=== PATIENT | female | born 1980 | race Two or more races ===

== ENCOUNTER 2016-07-06 20:58 | Emergency (ER) | payer OTHER ==
[2016-07-06 21:45] VITALS: BP 121/75; PULSE 95; RESP 16; TEMP 98.1; O2SAT 96
--- NOTE | 2016-07-06 21:59 | UCPHY ---
H & P Patient Type: Established Chief Complaint Nursing Narrative: heavy vaginal bleeding with clots for 3 day, frequent soft stools,cramping,low back pain,constant vaginal bleeding for 2 months Time Seen by Provider: 07/06/16 21:49 HPI/ROS: This patient complains of heavy vaginal bleeding for the past 24 hours. She reports 2 months of study bleeding for about 3 or 4 pads a day but then over the past 3 days the severity of the bleeding has gradually increased and now today she reports going through a pad about every hour. She reports mild cramping to moderate cramping in the pelvic region this afternoon that resolved or nearly resolved with ibuprofen 800 mg. She notes no exacerbating or alleviating factors for her symptoms. ROS: Constitutional: Mild fatigue today. Otherwise negative. HEENT: No headache or other complaints pulmonary: No shortness of breath cardiovascular: No lightheadedness. GI: No nausea or vomiting. : No vaginal discharge or other symptoms proceeded the bleeding. She does not think she is . 10 point ROS is otherwise negative. Source: Patient Exam Limitations: No limitations - Personal History LMP (Females 10-55): Now - Medical/Surgical History PMH: Obesity PCOS Hx Asthma: No Hx Chronic Respiratory Disease: No Hx Diabetes: No Hx Cardiac Disease: No Hx Renal Disease: No Hx Cirrhosis: No Hx Alcoholism: No Hx HIV/AIDS: No Hx Splenectomy or Spleen Trauma: No Other PMH: tonsillectomy, anxiety,GERD - Family History Significant Family History: No pertinent family hx - Social History Smoking Status: Never smoked Alcohol Use: Occasionally Drug Use: None - Physical Exam Exam: General Appearance: Pleasant obese female Alert, no distress. Eyes: Pupils equal and round no pallor or injection. ENT, Mouth: Mucous membranes moist. Respiratory: There are no retractions, lungs are clear to auscultation. Cardiovascular: Regular rate and rhythm. Gastrointestinal: Abdomen is soft and nontender, no masses, bowel sounds normal. : No external genitalia lesions. Speculum exam she has moderate blood through the cervical os. The os is closed. The cervix appears healthy. There is no lesions. Neurological: Alert with no focal deficits. Skin: Warm and dry, no rashes. No significant pallor. Psychiatric: Mood and affect are normal DIFFERENTIAL DIAGNOSIS: After history and physical exam differential diagnosis was considered for dysfunctional uterine bleeding, uterine cancer, ovarian cysts , Constitutional: Initial Vital Signs Temperature (C) 36.7 C 07/06/16 21:41 Heart Rate 95 07/06/16 21:41 Respiratory Rate 16 07/06/16 21:41 Blood Pressure 121/75 H 07/06/16 21:41 O2 Sat (%) 96 07/06/16 21:41 O2 Delivery Mode Room Air Allergies/Adverse Reactions: No Known Allergies Allergy (Verified 07/06/16 21:40) Home Medications: Medication Instructions Recorded Norethindrone Acetate [Aygestin 5 mg PO QID #30 tab 07/06/16 5mg (RX)] Vyvanse 07/06/16 Medical Decision Making ED Course/Re-evaluation: Studies: CBC - review-no anemia HCG is negative I spoke with Dr. Balbuena-JOSE on-call to facilitate close follow-up. We will start the patient on Aygestin if it is going to take more than a couple days to be seen in the clinic. Otherwise she will try to hold off on Aygestin if she is able to the be seen within the next 2 days for evaluation 1st by OBGYN. I counseled her regarding this. Discussion: Menometrorrhagia in this patient with out evidence of hemodynamic instability. We ruled out . No other concerning findings - Data Points Laboratory Results: Laboratory Results 07/06/16 22:15 07/06/16 22:15 WBC 10.84 H 10^3/uL (3.80-9.50) RBC 4.86 10^6/uL (4.18-5.33) Hgb 14.4 g/dL (12.6-16.3) Hct 42.6 % (38.0-47.0) MCV 87.7 fL (81.5-99.8) MCH 29.6 pg (27.9-34.1) MCHC 33.8 g/dL (32.4-36.7) RDW 12.3 % (11.5-15.2) Plt Count 314 10^3/uL (150-400) MPV 9.5 fL (8.7-11.7) Neut % (Auto) 56.9 % (39.3-74.2) Lymph % (Auto) 33.8 % (15.0-45.0) [place] % (Auto) 6.8 % (4.5-13.0) Eos % (Auto) 1.4 % (0.6-7.6) Baso % (Auto) 0.6 % (0.3-1.7) Nucleat RBC Rel Count 0.0 % (0.0-0.2) Absolute Neuts (auto) 6.17 10^3/uL (1.70-6.50) Absolute Lymphs (auto) 3.66 H 10^3/uL (1.00-3.00) Absolute Monos (auto) 0.74 10^3/uL (0.30-0.80) Absolute Eos (auto) 0.15 10^3/uL (0.03-0.40) Absolute Basos (auto) 0.07 10^3/uL (0.02-0.10) Absolute Nucleated RBC 0.00 10^3/uL (0-0.01) Immature Gran % 0.5 % (0.0-1.1) Immature Gran # 0.05 10^3/uL (0.00-0.10) Beta HCG, Qual NEGATIVE Departure - Departure Disposition: Home, Routine, Self-Care Clinical Impression: Menometrorrhagia Condition: Good Instructions: Dysfunctional Uterine Bleeding (ED) Additional Instructions: Diagnosis: Uterine bleeding Plan: Call Dr. Balbuena office to arrange follow-up appointment. If her able to see within the next 2 days then tried to hold off on starting the medication. If it's going to take longer than that to be seen, then start the Aygestin Referrals: Kathia Coronado [Primary Care Provider] - As per Instructions Miryam Balbuena DO [Doctor of Osteopathy] - As per Instructions Prescriptions: Norethindrone Acetate [Aygestin 5mg (RX)] 5 mg PO QID #30 tab - PQRS PQRS Measurement: NA
[2016-07-06 22:22] LABS: % IMMATURE GRANULYOCYTES 0.5 % (0.0-1.1); ABSOLUTE IMMATURE GRANULOCYTES 0.05 10^3/uL (0.00-0.10); ADD DIFF? NO; ADD MORPH? NO; ADD SCAN? NO; ATYPICAL LYMPHOCYTE FLAG 0 (0-99); FRAGMENT RBC FLAG 0 (0-99); HEMATOCRIT 42.6 % (38.0-47.0); HEMOGLOBIN 14.4 g/dL (12.6-16.3); LEFT SHIFT FLG 0 (0-99); LIPEMIA HEMOLYSIS FLAG 90 (0-99); MEAN CELL HEMOGLOBIN 29.6 pg (27.9-34.1); MEAN CELL HEMOGLOBIN CONCENTR. 33.8 g/dL (32.4-36.7); MEAN CELL VOLUME 87.7 fL (81.5-99.8); MEAN PLATELET VOLUME 9.5 fL (8.7-11.7); PLATELET CLUMPS FLAG 0 (0-99); PLATELET COUNT 314 10^3/uL (150-400); RED BLOOD CELL COUNT 4.86 10^6/uL (4.18-5.33); RED CELL DISTRIBUTION WIDTH 12.3 % (11.5-15.2)
== END 2016-07-06 23:18 | disposition home or self-care (01) ==
LOC: CED 20:58
DX: N93.9 Abnormal uterine and vaginal bleeding, unspecified (principal); R10.9 Unspecified abdominal pain; M54.5 Low back pain; E66.9 Obesity, unspecified; Z68.41 Body mass index [BMI] 40.0-44.9, adult
CPT/HCPCS: 84703-PO; 85025-PO; 99214-PO; G0463-PO

== ENCOUNTER 2017-12-05 14:42 | Emergency (ER) | payer OTHER ==
--- NOTE | 2017-12-05 14:49 | EDPHY ---
H & P Time Seen by Provider: 12/05/17 14:49 HPI/ROS: HPI CHIEF COMPLAINT: Abdominal pain HISTORY OF PRESENT ILLNESS: Patient is a 37-year-old very pleasant female, she presents emergency room with epigastric abdominal pain. She describes this pain as sharp stabbing starts in her epigastric region and goes midline. Down to her umbilicus. It is worse when you press on her epigastric region. She has had nausea but no vomiting. This started at 5:00 a.m. It is now 3:00 p.m. In the afternoon. It has been constant. It does go to her back as well. She denies any shortness of breath or pleuritic pain. Denies chest pain, denies focal numbness or tingling. Main complaint is epigastric sharp stabbing pain. Radiates down to her lower abdomen. Past Medical History: Denies medical history Past Surgical History: Denies any significant abdominal surgery Social History: Denies drugs alcohol tobacco. Family History: Noncontributory ROS REVIEW OF SYSTEMS: A comprehensive 10 point review of systems is otherwise negative aside from elements mentioned in the history of present illness. Exam Constitutional nontoxic appearing, triage nursing summary reviewed, vital signs reviewed, awake/alert. Eyes normal conjunctivae and sclera, EOMI, PERRLA. HENT normal inspection, atraumatic, moist mucus membranes, no epistaxis, neck supple/ no meningismus, no raccoon eyes. Respiratory clear to auscultation bilaterally, normal breath sounds, no respiratory distress, no wheezing. Cardiovascular rate normal, regular rhythm, no murmur, no edema, distal pulses normal. Gastrointestinal mild tender palpation epigastric no rebound, no guarding, normal bowel sounds, no distension, no pulsatile mass. Genitourinary no CVA tenderness. Musculoskeletal no midline vertebral tenderness, full range of motion, no calf swelling, no tenderness of extremities, no meningismus, good pulses, neurovascularly intact. Skin pink, warm, & dry, no rash, skin atraumatic. Neurologic awake, alert and oriented x 3, AAOx3, moves all 4 extremities equally, motor intact, sensory intact, CN II-XII intact, normal cerebellar, normal vision, normal speech. Psychiatric normal mood/affect. Heme/Lymph/Immune no lymphadenopathy. Differential diagnosis includes but is not limited to and in no particular order : Bowel obstruction, appendicitis, gallbladder disease, diverticulitis, colitis , enteritis, perforated viscus, gastritis, GERD, esophagitis, urinary tract infection, pyelonephritis, kidney stones, Differential diagnosis includes but is not limited to: ACS, atypical chest pain, pneumothorax, pneumonia, pulmonary embolism, aortic dissection, congestive heart failure, tumor, musculoskeletal pain, esophageal pain, GERD, peptic ulcer disease, pancreatitis Medical Decision Making: Plan for this patient IV establishment with fluid bolus, GI cocktail, point of care labs here, as well as lipase, D-dimer, chest x -ray, EKG GI cocktail to see if this improves her discomfort. Re-evaluation: EKG interpretation by me on record in [facility] system. Impression time of EKG 1542, this is sinus rhythm rate of 95 T-wave inversion in lead 3. Otherwise no acute ischemic change no ST elevation or ST depression. ED x-ray chest one view negative for acute cardiopulmonary disease. Ultrasound of the abdomen and right upper quadrant this shows gallbladder full of gallstones and fatty liver but no evidence of acute cholecystitis. 1810: Patient re-evaluated this time resting comfortably. Abdomen is soft nontender. Patient states she feels much better after GI cocktail. I discussed her labs in detail with her as well as her ultrasound that shows a gallbladder full gallstones but no evidence of acute cholecystitis. I discussed her enlarged liver. We discussed about treatment options in follow-up care. She should follow up with her primary care doctor. She refrain from eating for spicy fatty greasy foods. Additionally I will prescribe Zantac for 2 weeks. She does understand return emergency room she develops worsening abdominal pain fever vomiting. She is comfortable this plan. Source: Patient - Medical/Surgical History Hx Asthma: No Hx Chronic Respiratory Disease: No Hx Diabetes: No Hx Cardiac Disease: No Hx Renal Disease: No Hx Cirrhosis: No Hx Alcoholism: No Hx HIV/AIDS: No Hx Splenectomy or Spleen Trauma: No Other PMH: tonsillectomy, anxiety,GERD - Social History Smoking Status: Never smoked Constitutional: Initial Vital Signs Temperature (C) 2.6 C L 12/05/17 14:53 Heart Rate 105 H 12/05/17 14:53 Respiratory Rate 16 12/05/17 14:53 Blood Pressure 148/98 H 12/05/17 14:53 O2 Sat (%) 94 12/05/17 14:53 O2 Delivery Mode Room Air Allergies/Adverse Reactions: No Known Allergies Allergy (Verified 12/05/17 14:52) Home Medications: Medication Instructions Recorded Norethindrone Acetate [Aygestin 5 mg PO QID #30 tab 07/06/16 5mg (RX)] Vyvanse 07/06/16 Ranitidine HCl [Zantac] 150 mg PO DAILY #14 tablet 12/05/17 Medical Decision Making - Diagnostics Imaging Results: Imaging Impressions Chest X-Ray 12/05/17 14:55 Impression: Normal. Abdomen Ultrasound 12/05/17 16:38 Impression: Cholelithiasis, with no findings for cholecystitis. Hepatomegaly, with fatty infiltration. Results called and discussed with Emre David M.D., on December 05, 2017 at 1749. - Data Points Laboratory Results: Laboratory Results 12/05/17 15:05 12/05/17 12/05/17 12/05/17 15:31 15:18 15:14 WBC RBC Hgb Hct MCV MCH MCHC RDW Plt Count MPV Neut % (Auto) Lymph % (Auto) Real % (Auto) Eos % (Auto) Baso % (Auto) Nucleat RBC Rel Count Absolute Neuts (auto) Absolute Lymphs (auto) Absolute Monos (auto) Absolute Eos (auto) Absolute Basos (auto) Absolute Nucleated RBC Immature Gran % Immature Gran # D-Dimer POC Blood Source VENOUS Patient Temperature 37.0 DEGREES DEGREES POC VBG pH 7.43 H (7.31-7.42) POC VBG pCO2 35 mmHg L mmHg (40-44) POC VBG pO2 38 mmHg mmHg (35-40) POC VBG HCO3 23 mEq/L mEq/L (22-26) POC VBG Total CO2 24 mEq/L mEq/L (21-27) POC VBG Base Excess -1.0 mEq/L mEq/L (-2.5-2.5) POC Mix VBG O2 Sat 74 % % (65-75) POC Sodium 138 mEq/L mEq/L (135-145) POC Potassium 3.7 mEq/L mEq/L (3.3-5.0) POC Chloride 101.0 mEq/L mEq/L (97-110) POC Total CO2 26 mEq/L mEq/L (22-31) POC BUN 8 mg/dL mg/dL (7-23) POC Creatinine 1.1 mg/dL H mg/dL (0.6-1.0) POC Glucose 97 mg/dL mg/dL (70-100) POC Lactic Acid [place] 2.2 mmol/L H mmol/L (0.7-2.1) POC Calcium 9.7 mg/dL mg/dL (8.5-10.4) POC Total Bilirubin 1.7 mg/dL H mg/dL (0.1-1.4) POC AST 229 IU/L H IU/L (14-46) POC ALT 122 IU/L H IU/L (9-52) POC Alk Phosphatase 76 IU/L IU/L (38-126) POC Troponin I 0.01 ng/mL ng/mL (0.00-0.08) POC Total Protein 7.5 g/dL g/dL (6.3-8.2) POC Albumin 3.6 g/dL g/dL (3.5-5.0) Lipase 12/05/17 12/05/17 12/05/17 15:05 15:05 15:05 WBC 8.77 10^3/uL 10^3/uL (3.80-9.50) RBC 5.13 10^6/uL 10^6/uL (4.18-5.33) Hgb 15.1 g/dL g/dL (12.6-16.3) Hct 44.5 % % (38.0-47.0) MCV 86.7 fL fL (81.5-99.8) MCH 29.4 pg pg (27.9-34.1) MCHC 33.9 g/dL g/dL (32.4-36.7) RDW 12.5 % % (11.5-15.2) Plt Count 329 10^3/uL 10^3/uL (150-400) MPV 10.1 fL fL (8.7-11.7) Neut % (Auto) 58.9 % % (39.3-74.2) Lymph % (Auto) 31.9 % % (15.0-45.0) Real % (Auto) 7.1 % % (4.5-13.0) Eos % (Auto) 1.0 % % (0.6-7.6) Baso % (Auto) 0.6 % % (0.3-1.7) Nucleat RBC Rel Count 0.0 % % (0.0-0.2) Absolute Neuts (auto) 5.17 10^3/uL 10^3/uL (1.70-6.50) Absolute Lymphs (auto) 2.80 10^3/uL 10^3/uL (1.00-3.00) Absolute Monos (auto) 0.62 10^3/uL 10^3/uL (0.30-0.80) Absolute Eos (auto) 0.09 10^3/uL 10^3/uL (0.03-0.40) Absolute Basos (auto) 0.05 10^3/uL 10^3/uL (0.02-0.10) Absolute Nucleated RBC 0.00 10^3/uL 10^3/uL (0-0.01) Immature Gran % 0.5 % % (0.0-1.1) Immature Gran # 0.04 10^3/uL 10^3/uL (0.00-0.10) D-Dimer 0.32 ug/mLFEU ug/mLFEU (0.00-0.50) POC Blood Source Patient Temperature POC VBG pH POC VBG pCO2 POC VBG pO2 POC VBG HCO3 POC VBG Total CO2 POC VBG Base Excess POC Mix VBG O2 Sat POC Sodium POC Potassium POC Chloride POC Total CO2 POC BUN POC Creatinine POC Glucose POC Lactic Acid [place]ron POC Calcium POC Total Bilirubin POC AST POC ALT POC Alk Phosphatase POC Troponin I POC Total Protein POC Albumin Lipase 158 IU/L IU/L (23-300) Medications Given: Discontinued Medications Al Hydroxide/Mg Hydroxide (Maalox Susp) 30 ml PO ONCE ONE Stop: 12/05/17 14:57 Last Admin: 12/05/17 15:14 Dose: 30 ml Hyoscyamine Sulfate (Levsin, Hyomax-Sl) 0.25 mg PO ONCE ONE Stop: 12/05/17 14:57 Last Admin: 12/05/17 15:13 Dose: 0.25 mg Sodium Chloride (Ns) 1,000 mls @ 0 mls/hr IV ONCE ONE PRN Reason: Wide Open Stop: 12/05/17 14:51 Last Admin: 12/05/17 15:09 Dose: 1,000 mls Lidocaine (Lidocaine 2% Viscous) 15 ml PO ONCE ONE Stop: 12/05/17 14:57 Last Admin: 12/05/17 15:14 Dose: 15 ml Ondansetron HCl (Zofran) 4 mg IVP EDNOW ONE Stop: 12/05/17 14:51 Last Admin: 12/05/17 15:10 Dose: 4 mg Point of Care Test Results: Chemistry 12/05/17 12/05/17 15:31 15:14 POC Sodium 138 mEq/L mEq/L (135-145) POC Potassium 3.7 mEq/L mEq/L (3.3-5.0) POC Chloride 101.0 mEq/L mEq/L (97-110) POC Total CO2 26 mEq/L mEq/L (22-31) POC BUN 8 mg/dL mg/dL (7-23) POC Creatinine 1.1 mg/dL H mg/dL (0.6-1.0) POC Glucose 97 mg/dL mg/dL (70-100) POC Calcium 9.7 mg/dL mg/dL (8.5-10.4) POC Total Bilirubin 1.7 mg/dL H mg/dL (0.1-1.4) POC AST 229 IU/L H IU/L (14-46) POC ALT 122 IU/L H IU/L (9-52) POC Alk Phosphatase 76 IU/L IU/L (38-126) POC Troponin I 0.01 ng/mL ng/mL (0.00-0.08) POC Total Protein 7.5 g/dL g/dL (6.3-8.2) POC Albumin 3.6 g/dL g/dL (3.5-5.0) Blood Gas/Lactic Acid-Arterial 12/05/17 15:18 POC Blood Source VENOUS Blood Gas/Lactic Acid-Venous 12/05/17 15:18 POC VBG pH 7.43 H (7.31-7.42) POC VBG pCO2 35 mmHg L mmHg (40-44) POC VBG pO2 38 mmHg mmHg (35-40) POC VBG HCO3 23 mEq/L mEq/L (22-26) POC VBG Total CO2 24 mEq/L mEq/L (21-27) POC VBG Base Excess -1.0 mEq/L mEq/L (-2.5-2.5) POC Mix VBG O2 Sat 74 % % (65-75) POC Lactic Acid [place] 2.2 mmol/L H mmol/L (0.7-2.1) Urine Collection Date 12/05/17 Collection Time 16:20 HCG Results Negative Urine Dip Collection Date 12/05/17 Collection Time 16:20 Specific [place] (1.002-1.030) 1.015 PH (5.0-7.5) 7.0 Leukocytes (Negative) Trace Nitrites (Negative) Negative Protein (Negative) Negative Glucose (Negative) Negative Ketones (Negative) Negative Urobilnogen (0.2-1.0 EU) 0.2 Bilirubin (Negative) Test Not Performed Blood (Negative) Negative Departure - Departure Disposition: Home, Routine, Self-Care Clinical Impression: Gallstones Abdominal pain Qualifiers: Abdominal location: epigastric Qualified Code(s): R10.13 - Epigastric pain Condition: Good Instructions: Acute Abdominal Pain (ED), Gallstones (ED), Biliary Colic (ED) Additional Instructions: 1. No spicy fatty greasy foods. 2. Antacid medication as prescribed. 3. Follow up with your doctor. 4. Have your liver enzymes re checked by your doctor. Referrals: Kathia Coronado [Primary Care Provider] - As per Instructions Prescriptions: Ranitidine HCl [Zantac] 150 mg PO DAILY #14 tablet
[2017-12-05] MEDS ORDERED: NS 1,000 ML IV ONE (14:50)
[2017-12-05] MEDS ORDERED: ONDANSETRON 4 MG/2 ML VIAL IVP ONE (14:50)
[2017-12-05] MEDS ORDERED: LIDOCAINE 2% VISCOUS 15 ML UDCUP PO ONE (14:56)
[2017-12-05] MEDS ORDERED: HYOSCYAMINE SULFATE 0.125 MG TAB PO ONE (14:56)
[2017-12-05] MEDS ORDERED: MAG HYDROX/AL HYDROX/SIMETH 30 ML UDCUP PO ONE (14:56)
--- NOTE | 2017-12-05 15:45 | CPEKG ---
Heart Rate: 95 RR Interval: 632 P-R Interval: 172 QRSD Interval: 84 QT Interval: 376 QTC Interval: 473 P [place]: 43 QRS [place]: 49 T Wave [place]: -4 EKG Severity - BORDERLINE ECG - EKG Impression: SINUS RHYTHM EKG Impression: BORDERLINE T ABNORMALITIES, INFERIOR LEADS Electronically Signed By: Emre David 05-Dec-2017 22:43:51
[2017-12-05 16:16] LABS: PLATELET COUNT 329 10^3/uL (150-400)
[2017-12-05 19:14] VITALS: BP 140/93
== END 2017-12-05 19:12 | disposition home or self-care (01) ==
LOC: CED 14:42
DX: K80.20 Calculus of gallbladder without cholecystitis without obstruction (principal)
CPT/HCPCS: 71045-PO; 76705-PO; 80053-PO; 83605-PO; 84484-PO; 96374; J2405